=== PATIENT | female | born 1955 | race Caucasian/White ===

== ENCOUNTER 2022-02-20 07:32 | Day surgery (SDC) | payer BC ==
[~2022-02-20 07:32] MED LIST: CLINDAMYCIN-D5W 900 MG/50 ML*** 900 MG/50 ML BAG IV STA; Lactated Ringers 1,000 ML IV SCH
[2022-02-20] MEDS ORDERED: Lactated Ringers 1,000 ML IV ONE (08:06)
[2022-02-20] MEDS ORDERED: CLINDAMYCIN-D5W 900 MG/50 ML*** 900 MG/50 ML BAG IV ONE (08:06)
[2022-02-20] MEDS ORDERED: Sodium Chloride 0.9% 1000 ML 1,000 ML ONE (09:47)
[2022-02-20 11:44] VITALS: BP 138/83; PULSE 80; O2SAT 95
--- NOTE | 2022-02-22 09:01 | OP ---
SURGERY DATE/TIME: 02/20/2022 0954 PREOPERATIVE DIAGNOSIS: Postmenopausal bleeding. POSTOPERATIVE DIAGNOSIS: Postmenopausal bleeding. PROCEDURE: Hysteroscopy D&C. SURGEON: Estevan Rajput D.O. TRIAL JUSTICE: Nuria Morrell rn surgical. ANESTHESIA: General. ESTIMATED BLOOD LOSS: Minimal. COMPLICATIONS: None. INDICATIONS: The risks, benefits, indications and alternatives of the procedure were reviewed with the patient prior to the procedure. The patient understood the risk of infection, bleeding, bowel injury, bladder injury, ureteral injury, uterine perforation, pelvic infection, thromboembolic disorder that may be associated with this procedure and desires to have this surgery as a possible means to alleviate her current medical condition. DESCRIPTION OF PROCEDURE AND FINDINGS: At this point the patient is taken to the operating room, given general sedation, placed in dorsal lithotomy position, prepped and draped in the usual sterile fashion. A weighted speculum is then placed in the patient's vagina and the anterior lip of the cervix is grasped with a single tooth tenaculum. Endocervical dilators were advanced through the endocervical canal as a means to dilate the cervix and a 5 mm hysteroscope was then placed in through the endocervical canal where visualization of endometrial lining appeared to be within normal limits with no gross abnormalities. From this point the hysteroscope was removed and the curette was then placed into the fundus of the uterus and curettage is performed in all quadrants of the uterus retrieving a mild to moderate amount of tissue. After retrieval of tissue, the curette was then removed and at this time there was no bleeding that was noted. From this point all instruments were removed from the patient's vaginal region. The patient was then taken out of dorsal lithotomy position, was then taken out of anesthesia and was then taken to the recovery room in stable condition. All instruments and laps were accounted for x2.
== END 2022-02-20 11:40 | disposition home or self-care (01) ==
LOC: SDC 07:32
PROVIDERS: ATTEND Obstetrics & Gynecology
DX: N95.0 Postmenopausal bleeding (principal)